=== PATIENT | male | born 2000 | race Caucasian/White ===

== ENCOUNTER 2024-01-28 03:42 | Emergency (ER) | payer BC ==
[2024-01-28 04:24] LABS: Absolute Lymphocytes (CBC) 0.9 K/uL (0.7-4.9); Absolute Monocytes 1.1 K/uL (0.1-1.3); Absolute Neutrophil 8.5 K/uL (1.8-8.0); Basophils % 0.3 % (0-1.3); Eosinophils % 0.1 % (0-4.4); Hematocrit 42.8 % (39.6-49.0); Hemoglobin 14.8 g/dL (13.6-17.9); Lymphocytes % 8.7 % (15.3-44.8); MCH 28.3 pg (27.0-35.0); MCHC 34.5 g/dL (32.0-36.0); MPV 7.4 fL (7.6-11.3); Monocytes % 10.6 % (3.3-12.3); Neutrophils % 80.3 % (41.7-73.7); Platelets 244 thou/uL (152-406); RBC Red Blood Cell Count 5.22 M/uL (4.33-5.43); Red Cell Distribution Width 12.9 % (12.1-15.2)
[2024-01-28 04:49] LABS: ALT/SGPT 46 U/L (16-61); AST/SGOT 65 U/L (15-37); Albumin 3.8 g/dL (3.4-5.0); Alkaline Phosphatase 76 U/L (45-117); BUN Blood Urea Nitrogen 18 mg/dL (7-18); Bicarbonate 27 mEq/L (21-32); Bilirubin Total 0.4 mg/dL (0.2-1.0); Globulin 3.8 g/dL (2.3-3.5); Glomerular Filtration Rate 104 ml/min (=/>90); Glucose Level 146 mg/dL (74-106); NT PRO-BNP 334 pg/mL (<125); Protein, Total 7.6 g/dL (6.4-8.2); Sodium Level 137 mEq/L (136-145)
[2024-01-28 04:53] LABS: Bilirubin Direct < 0.2 mg/dL (0-0.2); Bilirubin Indirect, Calculated 0.2 mg/dL (0.2-0.8)
[2024-01-28 04:55] LABS: Troponin High Sensitivity 22044.3 pg/mL (<58.9)
[2024-01-28] MEDS ORDERED: LORazepam 2 MG/ML VIAL ONE (05:24)
[2024-01-28] MEDS ORDERED: NA CHLORIDE 0.9% 2,000 ML ONE (05:25)
[2024-01-28] MEDS ORDERED: KETOROLAC 30 MG/ML INJ ONE (05:25)
--- NOTE | 2024-01-28 06:07 | RAD REPORT ---
PROCEDURE: XR Chest, 1 View CLINICAL INDICATION: The patient is 23 years old and is Male; Chest pain. TECHNIQUE: Frontal view of the chest. COMPARISON: None. FINDINGS: LUNGS: No discrete focal consolidation. PLEURAL SPACE: No appreciable pleural effusion or pneumothorax. MEDIASTINUM: Prominence of the cardiac silhouette, likely exaggerated secondary to portable techniq ue and lordotic positioning. Mediastinal contours appear unremarkable. Superior mediastinum is narrow. BONES/JOINTS: No acute osseous abnormality. IMPRESSION: No acute findings in the chest. Electronically signed by: Cyrus Simons MD 01/28/2024 05:17 AM CDT RP Due to temporary technical issues with the PACS/Addictive reporting system, reports are being jaime d by the in-house radiologist without review as a courtesy to ensure prompt reporting the interpreting radiologist is fully responsible for the content of the report. Transcribed Date/Time: 01/28/2024 6:07 AM
--- NOTE | 2024-01-28 06:19 | RAD REPORT ---
EXAM: CT Angiography Chest, Abdomen and Pelvis With Intravenous Contrast CLINICAL HISTORY: The patient is 23 years old and is Male; Chest pain. TECHNIQUE: Axial computed tomographic angiography images of the chest, abdomen and pelvis with intr avenous contrast. Sagittal and coronal reformatted images were created and reviewed. This CT exam was performed using one or more of the following dose reduction techniques: automated exposure control, adjustment of the mA and/or kV according to patient size, and/or use of iterative reconstruction technique. MIP reconstructed images were created and reviewed. COMPARISON: XR Chest 01/28/2024, 04:24:52 AM. FINDINGS: VASCULATURE: Aorta: No aortic dissection or aneurysm. Pulmonary arteries: Unremarkable as visualized. No pulmonary embolism is identified. Great vessels of aortic arch: No acute findings. No dissection. No arterial occlusion or sign ificant stenosis. Celiac trunk and mesenteric arteries: No acute findings. No occlusion or significant stenosis. Renal arteries: No acute findings. No occlusion or significant stenosis. Iliac arteries: No acute findings. No occlusion or significant stenosis. CHEST: Lungs: Unremarkable. No mass. No consolidation. Pleural space: Unremarkable. No significant effusion. No pneumothorax. Heart: Unremarkable. No cardiomegaly. No significant pericardial effusion. ABDOMEN: Liver: Unremarkable. No mass. Gallbladder and bile ducts: Unremarkable. No calcified stones. No ductal dilation. Pancreas: Unremarkable. No ductal dilation. No mass. Spleen: Unremarkable. No splenomegaly. Adrenals: Unremarkable. No mass. Kidneys and ureters: Unremarkable. No hydronephrosis. No solid mass. Stomach and bowel: No bowel dilatation or obstruction. No bowel wall thickening. PELVIS: Appendix: No findings to suggest acute appendicitis. Bladder: Unremarkable. No mass. Reproductive: Unremarkable as visualized. CHEST, ABDOMEN and PELVIS: Intraperitoneal space: Unremarkable. No significant fluid collection. No free air. Bones/joints: No acute fracture visualized. No dislocation. Soft tissues: Unremarkable. Lymph nodes: No pathologically enlarged lymph nodes. IMPRESSION: 1. No aortic dissection or aneurysm. 2. No acute findings in the chest, abdomen or pelvis. Electronically signed by: Promise Harris MD 01/28/2024 06:08 AM CDT RP ND Due to temporary technical issues with the PACS/Ar[employer] reporting system, reports are being jaime d by the in-house radiologist without review as a courtesy to ensure prompt reporting the interpreting radiologist is fully responsible for the content of the report. Transcribed Date/Time: 01/28/2024 6:18 AM
[2024-01-28] MEDS ORDERED: HEPARIN/D5W 25,000 UNIT/500 ML BAG IV ONE (06:33)
[2024-01-28] MEDS ORDERED: ASPIRIN 81 MG CHEWABLE TABLET ONE (06:33)
[2024-01-28] MEDS ORDERED: HEPARIN 5000 UNIT/ML 1 ML VIAL ONE (06:33)
--- NOTE | 2024-01-28 06:42 | ER ---
Nurse's Notes [facility] Name: Tobias Zamudio Age: 23 yrs Sex: Male : 2000 Arrival Date: 01/28/2024 Time: 03:42 Bed 8 Private MD: Diagnosis: Acute myocarditis, acute NSTEMI, evaded troponin level Presentation: 01/27 03:50 Chief complaint: Patient states: substernal CP beginning 0030 with nausea. Coronavirus lg3 screen: Client denies travel out of the [place] in the last 14 days. At this time, the client does not indicate any symptoms associated with coronavirus-19. Ebola Screen: No symptoms or risks identified at this time. Initial Sepsis Screen: Does the patient meet any 2 criteria? No. Patient's initial sepsis screen is negative. Does the patient have a suspected source of infection? No. Patient's initial sepsis screen is negative. Risk Assessment: Do you want to hurt yourself or someone else? Patient reports no desire to harm self or others. Onset of symptoms was January 28, 2024. 03:50 Method Of Arrival: Ambulatory lg3 03:50 Acuity: BONNIE 3 lg3 Triage Assessment: 03:51 General: Appears in no apparent distress. comfortable, Behavior is calm, cooperative. lg3 Pain: Complains of pain in xiphoid area and mid-sternal area. EENT: No deficits noted. No signs and/or symptoms were reported regarding the EENT system. Neuro: No deficits noted. Park Agitation-Sedation Scale (RASS): 0 - Alert and Calm Level of Consciousness is awake, alert, obeys commands, Oriented to person, place, time, situation. Cardiovascular: Reports chest pain, Capillary refill < 3 seconds Clubbing of nail beds is absent JVD is absent Patient's skin is warm and dry. Chest pain is described as mild, quality is heaviness, pressure. Respiratory: No deficits noted. Airway is patent Respiratory effort is even, unlabored, Respiratory pattern is regular, symmetrical. GI: No deficits noted. No signs and/or symptoms were reported involving the gastrointestinal system. : No deficits noted. No signs and/or symptoms were reported regarding the genitourinary system. Derm: No deficits noted. No signs and/or symptoms reported regarding the dermatologic system. Skin is intact, is healthy with good turgor, Skin is dry, Skin is normal, Skin temperature is warm. Musculoskeletal: No deficits noted. No signs and/or symptoms reported regarding the musculoskeletal system. Circulation, motion, and sensation intact. Range of motion: intact in all extremities. Historical: - Allergies: 03:51 No Known Allergies; lg3 - Home Meds: 03:51 None [Active]; lg3 - PMHx: 03:51 None; lg3 - PSHx: 03:51 None; lg3 - Immunization history:: Adult Immunizations up to date. - Infectious Disease History:: Denies. - Social history:: Smoking status: Patient denies any tobacco usage or history of. Patient/guardian denies using alcohol, street drugs. - Family history:: not pertinent. Screenin:53 [facility] ED Fall Risk Assessment (Adult) History of falling in the last 3 months, lg3 including since admission No falls in past 3 months (0 pts) Confusion or Disorientation No (0 pts) Intoxicated or Sedated No (0 pts) Impaired Gait No (0 pts) Mobility Assist Device Used No (0 pt) Altered Elimination No (0 pt) Score/Fall Risk Level 0 - 2 = Low Risk Oriented to surroundings, Maintained a safe environment, Educated pt \T\ family on fall prevention, incl call for assistance when getting out of bed, Assessed \T\ reinforced patient's understanding of fall precautions. Abuse screen: Denies threats or abuse. Denies injuries from another. Nutritional screening: No deficits noted. Tuberculosis screening: No symptoms or risk factors identified. Assessment: 03:53 General: see triage assessment. Pain: Pain does not radiate. Quality of pain is lg3 described as heavy, pressure, Pain began 4 hours ago. Also complains of nausea. 05:38 Reassessment: Patient appears in no apparent distress at this time. Patient and/or bm8 family updated on plan of care and expected duration. Pain level reassessed. Patient is alert, oriented x 3, equal unlabored respirations, skin warm/dry/pink. General: Appears in no apparent distress. comfortable, Behavior is calm, cooperative, appropriate for age. Pain: Denies pain. Neuro: No deficits noted. Level of Consciousness is awake, alert, obeys commands, Oriented to person, place, time, situation, Appropriate for age. Cardiovascular: Denies chest pain, Heart tones S1 S2 present Capillary refill < 3 seconds in bilateral fingers Patient's skin is warm and dry. Rhythm is sinus rhythm. Respiratory: Airway is patent Trachea midline Respiratory effort is even, unlabored, Respiratory pattern is regular, symmetrical, Breath sounds are clear bilaterally. GI: No signs and/or symptoms were reported involving the gastrointestinal system. : No signs and/or symptoms were reported regarding the genitourinary system. EENT: No signs and/or symptoms were reported regarding the EENT system. Derm: No signs and/or symptoms reported regarding the dermatologic system. Musculoskeletal: No signs and/or symptoms reported regarding the musculoskeletal system. 07:28 General: Appears in no apparent distress. Behavior is calm, cooperative. Pain: Denies mb9 pain. Neuro: Level of Consciousness is awake, alert, obeys commands, Oriented to person, place, time, situation, Appropriate for age. Cardiovascular: Heart tones S1 S2 present Patient's skin is warm and dry. Respiratory: Airway is patent Respiratory effort is even, unlabored, Respiratory pattern is regular, symmetrical. GI: Abdomen is flat, non-distended, Bowel sounds present X 4 quads. Abd is soft and non tender X 4 quads. : No signs and/or symptoms were reported regarding the genitourinary system. Derm: Skin is pink, warm \T\ dry. Musculoskeletal: Range of motion: intact in all extremities. 07:40 Reassessment: Attempted to call report to transferring nurse. Nurse not available and mb9 states she will call back. 08:15 Reassessment: No changes from previously documented assessment. Patient and/or family mb9 updated on plan of care and expected duration. Pain level reassessed. Patient is alert, oriented x 3, equal unlabored respirations, skin warm/dry/pink. 08:53 Reassessment: Report given to EMS. mb9 Vital Signs: 03:50 BP 134 / 73; Pulse 78; Resp 17 S; Temp 99(O); Pulse Ox 99% on R/A; Weight 86.18 kg (R); lg3 Height 5 ft. 11 in. (R); 05:38 BP 133 / 76; Pulse 85; Resp 17; Temp 99; Pulse Ox 100% on R/A; Pain 0/10; bm8 07:12 BP 112 / 69; Pulse 73; Resp 16; Pulse Ox 97% on R/A; mb9 08:53 BP 140 / 70; Pulse 88; Resp 18; Pulse Ox 100% on R/A; mb9 03:50 Body Mass Index 26.50 (86.18 kg, 180.34 cm) lg3 05:38 Pain Scale: Adult bm8 Emery Coma Score: 05:38 Eye Response: spontaneous(4). Motor Response: obeys commands(6). Verbal Response: bm8 oriented(5). Total: 15. ED Course: 03:47 Patient arrived in ED. gm2 03:51 Triage completed. lg3 03:51 Arm band placed on right wrist. lg3 03:53 Patient has correct armband on for positive identification. lg3 03:53 Patient maintains SpO2 saturation greater than 95% on room air. lg3 03:54 Reyna Sommer, RN is Primary Nurse. lg3 03:54 Client placed on continuous cardiac and pulse oximetry monitoring. NIBP monitoring lg3 applied. railroad engineer on. Door closed. Noise minimized. Warm blanket given. Pillow given. 03:57 Connor Jean MD is Attending Physician. sp4 04:16 Initial lab(s) drawn, by ED staff, sent to lab. EKG done, by ED staff, reviewed by lg3 Connor Jean MD. Inserted saline lock: 20 gauge in left antecubital area, using aseptic technique. Blood collected. Flushed with 10 mL NS. 04:17 CRP Sent. lg3 04:17 T4 Free Sent. lg3 04:17 TSH Sent. lg3 04:17 Basic Metabolic Panel Sent. lg3 04:17 CBC with Diff Sent. lg3 04:17 LFT's Sent. lg3 04:17 NT PRO-BNP Sent. lg3 04:17 Troponin HS Sent. lg3 04:30 XRAY Chest (1 view) In Process Unspecified. EDMS 05:21 Procalcitonin Sent. lg3 05:21 Lactate w/ 2H reflex if indic. Sent. lg3 05:21 Blood Culture Adult (2) Sent. lg3 05:22 Troponin High Sensitivity Sent. lg3 05:38 No provider procedures requiring assistance completed. bm8 05:49 CT Aorta for Dissection In Process Unspecified. EDMS 06:[address] [facility] from [facility]. bc6 07:06 bed acceptance Bed 14. bc6 07:12 Primary Nurse role handed off by Reyna Sommer RN mb9 07:12 Romana Liu, TAYLOR is Primary Nurse. mb9 07:13 Patient transferred, IV remains in place. mb9 08:20 Emma with [facility] accepted transfer. bc6 Administered Medications: 05:38 Drug: NS 0.9% IV 1000 ml IV at 1000 ml once; to be given as a bolus over 60 minutes bm8 Route: IV; Rate: 1000 ml; Site: left antecubital; 06:27 Follow up: Response: No adverse reaction; IV Status: Completed infusion; IV Intake: bm8 1000ml 05:38 Drug: NS 0.9% IV 1000 ml IV at 125 ml/hr continuous Route: IV; Rate: 125 ml/hr; Site: 8 left antecubital; 07:21 Follow up: Response: No adverse reaction; IV Status: Infusion continued upon transfer 9 05:38 Drug: Ketorolac IVP 30 mg IVP once Route: IVP; Site: left antecubital; bm8 06:26 Follow up: Response: No adverse reaction 8 05:38 Drug: Ativan IVP 1 mg IVP once Route: IVP; Site: left antecubital; bm8 06:26 Follow up: Response: No adverse reaction 8 06:45 Drug: Heparin (AR Drip) 12 units/kg/hr - ([place] [address] units, D5W IV 500 ml) IV at bm8 calculated rate Per protocol; Max initial rate 1000 units/hr {Co-Signature: yosi (Maris Hensley RN).} Route: IV; Rate: calculated rate; Site: left antecubital; 07:21 Follow up: Response: No adverse reaction; IV Status: Infusion continued upon transfer 9 06:46 Drug: Heparin (AR-Bolus No thrombolytic) - HEParin IVP 60 units/kg IVP once; Max 5000 bm8 units {Co-Signature: yosi (Maris Hensley RN).} Route: IVP; Site: left antecubital; 07:21 Follow up: Response: No adverse reaction 9 06:50 Drug: Aspirin PO Chewable Tablet 324 mg PO once; 81 mg tablets x 4 Route: PO; bm8 07:21 Follow up: Response: No adverse reaction mb9 Medication: 03:53 VIS not applicable for this client. lg3 Intake: 06:27 IV: 1000ml; Total: 1000ml. bm8 Outcome: 06:41 ER care complete, transfer ordered by MD. palmer 08:14 Transferred by ground EMS to [facility], Transfer form completed. mb9 X-rays sent w/ patient. Note: Report given to TAYLOR Blanca 08:14 Condition: stable 08:14 Instructed on the need for transfer, 08:53 Patient left the ED. mb9 Addendum: 01/30/2024 07:29 Addendum: Culture Results: Positive blood culture. Phone call Attempt #1 spoke with jose Lindsey at [facility] , faxed report to . Signatures: Dispatcher [employer] EDDesire Painter RN Reyna Santiago RN RN lg3 Noe, Romana Velasco RN RN mb9 Rocio Grover6 Connor Jean MD MD sp4 Mitchell, Ginger 2 Jg Kebede RN RN bm8 Maris Hensley RN kd3 Corrections: (The following items were deleted from the chart) 01/27 06:47 06:46 Heparin (AR-Bolus No thrombolytic) - HEParin IVP 5170.8 units IVP in left bm8 antecubital bm8
--- NOTE | 2024-01-28 06:42 | EDPHYS ---
Physician Documentation [facility] Name: Tobias Zamudio Age: 23 yrs Sex: Male : 2000 Arrival Date: 01/28/2024 Time: 03:42 Bed 8 Private MD: ED Physician Connor Jean HPI: 01/27 03:57 This 23 yrs old Male presents to ER via Ambulatory with complaints of Chest sp4 Pain. 06:32 This Is a 23-year-old male basically healthy male who presents with acute onset sp4 midsternal moderate chest pressure described as moderate to severe. Patient states that in the last few days he has been feeling unwell having chills and symptoms of viral illness. . Generally speaking patient a physically fit man, who works out at the gym and denied exertional chest pain or exertional dyspnea.. Historical: - Allergies: 03:51 No Known Allergies; lg3 - Home Meds: 03:51 None [Active]; lg3 - PMHx: 03:51 None; lg3 - PSHx: 03:51 None; lg3 - Immunization history:: Adult Immunizations up to date. - Infectious Disease History:: Denies. - Social history:: Smoking status: Patient denies any tobacco usage or history of. Patient/guardian denies using alcohol, street drugs. - Family history:: not pertinent. ROS: 06:32 Constitutional: Negative for fever, chills, and weight loss, positive chest pressure sp4 06:32 All other systems are negative, Exam: 06:32 Constitutional: This is a well developed, well nourished patient who is awake, alert, sp4 and in no acute distress. Head/Face: Normocephalic, atraumatic. Eyes: Pupils equal round and reactive to light, extra-ocular motions intact. Lids and lashes normal. Conjunctiva and sclera are not injected. Cornea within normal limits. Periorbital areas with no swelling, redness, or edema. ENT: Nares patent. No nasal discharge, no septal abnormalities noted. Tympanic membranes are normal and external auditory canals are clear. Oropharynx with no redness, swelling, or masses, exudates, or evidence of obstruction, uvula midline. Mucous membranes moist. Neck: Trachea midline, no thyromegaly or masses palpated, and no cervical lymphadenopathy. Supple, full range of motion without nuchal rigidity, or vertebral point tenderness. Chest/axilla: Normal chest wall appearance and motion. Nontender with no deformity. No lesions are appreciated. Cardiovascular: Regular rate and rhythm with a normal S1 and S2. No gallops, murmurs, or rubs. Normal PMI, no JVD. No pulse deficits. Respiratory: Lungs have equal breath sounds bilaterally, clear to auscultation and percussion. No rales, rhonchi or wheezes noted. No increased work of breathing, no retractions or nasal flaring. Abdomen/GI: Soft, with normal bowel sounds. No distension or tympany. No guarding or rebound. No evidence of tenderness throughout. Back: No spinal tenderness. No costovertebral tenderness. Skin: Warm, dry with normal turgor. Normal color with no rashes, no lesions, and no evidence of cellulitis. MS/ Extremity: Pulses equal, no cyanosis. Neurovascular intact. Full, normal range of motion. Neuro: Awake and alert, GCS 15, oriented to person, place, time, and situation. Cranial nerves II-XII grossly intact. Motor strength 5/5 in all extremities. Sensory grossly intact. Psych: Awake, alert, with orientation to person, place and time. Behavior, mood, and affect are within normal limits 06:32 ECG was reviewed by the Attending Physician. Initial EKG at 0409 normal sinus rhythm at rate of 76 with early repolarization. Vital Signs: 03:50 BP 134 / 73; Pulse 78; Resp 17 S; Temp 99(O); Pulse Ox 99% on R/A; Weight 86.18 kg (R); lg3 Height 5 ft. 11 in. (R); 05:38 BP 133 / 76; Pulse 85; Resp 17; Temp 99; Pulse Ox 100% on R/A; Pain 0/10; bm8 07:12 BP 112 / 69; Pulse 73; Resp 16; Pulse Ox 97% on R/A; mb9 08:53 BP 140 / 70; Pulse 88; Resp 18; Pulse Ox 100% on R/A; mb9 03:50 Body Mass Index 26.50 (86.18 kg, 180.34 cm) lg3 05:38 Pain Scale: Adult bm8 [place] Coma Score: 05:38 Eye Response: spontaneous(4). Motor Response: obeys commands(6). Verbal Response: bm8 oriented(5). Total: 15. MDM: 03:58 Medical Screening Exam initiated sp4 06:24 ED course: EXAM: CTAngiography Chest, Abdomen and Pelvis With Intravenous Contrast sp4 CLINICAL HISTORY: The patient is 23 years old and is Male; Chest pain. TECHNIQUE: Axial computed tomographic angiography images of the chest, abdomen and pelvis with intravenous contrast. Sagittal and coronal reformatted images were created and reviewed. This CT exam was performed using one or more of the following dose reduction techniques: automated exposure control, adjustment of the mA and/or kV according to patient size, and/or use of iterative reconstruction technique. MIP reconstructed images were created and reviewed. COMPARISON: XR Chest 01/28/2024, 04:24:52 AM. FINDINGS: VASCULATURE: Aorta: No aortic dissection or aneurysm. Pulmonary arteries: Unremarkable as visualized. No pulmonary embolism is identified. Great vessels of aortic arch: No acute findings. No dissection. No arterial occlusion or significant stenosis. Celiac trunk and mesenteric arteries: No acute findings. No occlusion or significant stenosis. Renal arteries: No acute findings. No occlusion or significant stenosis. Iliac arteries: No acute findings. No occlusion or significant stenosis. CHEST: Lungs: Unremarkable. No mass. No consolidation. Pleural space: Unremarkable. No significant effusion. No pneumothorax. Heart: Unremarkable. No cardiomegaly. No significant pericardial effusion. ABDOMEN: Liver: Unremarkable. No mass. Gallbladder and bile ducts: Unremarkable. No calcified stones. No ductal dilation. Pancreas: Unremarkable. No ductal dilation. No mass. Spleen: Unremarkable. No splenomegaly. Adrenals: Unremarkable. No mass. Kidneys and ureters: Unremarkable. No hydronephrosis. No solid mass. Stomach and bowel: No bowel dilatation or obstruction. No bowel wall thickening. PELVIS: Appendix: No findings to suggest acute appendicitis. Bladder: Unremarkable. No mass. Reproductive: Unremarkable as visualized. CHEST, ABDOMEN and PELVIS: Intraperitoneal space: Unremarkable. No significant fluid collection. No free air. Bones/joints: No acute fracture visualized. No dislocation. Soft tissues: Unremarkable. Lymph nodes: No pathologically enlarged lymph nodes. IMPRESSION: 1. No aortic dissection or aneurysm. 2. No acute findings in the chest, abdomen or pelvis. ED course: PROCEDURE: XR Chest, 1 View CLINICAL INDICATION: The patient is 23 years old and is Male; Chest pain. TECHNIQUE: Frontal view of the chest. COMPARISON: None. FINDINGS: LUNGS: No discrete focal consolidation. PLEURAL SPACE: No appreciable pleural effusion or pneumothorax. MEDIASTINUM: Prominence of the cardiac silhouette, likely exaggerated secondary to portable technique and lordotic positioning. Mediastinal contours appear unremarkable. Superior mediastinum is narrow. BONES/JOINTS: No acute osseous abnormality. IMPRESSION: No acute findings in the chest.. 06:37 HEART Score: History: Moderately Suspicious (1), ECG: Normal (0), Age: < or = 45 years sp4 (0), Risk Factors: No Risk Factors Known (0), Troponin: > or = 3 x Normal Limit (2), Total Score = 3. Data reviewed: vital signs, nurses notes. 06:38 Differential diagnosis: acute pericarditis, anxiety, chest wall pain, esophagitis, sp4 gastritis, myocarditis, pancreatitis, pericarditis. 01/27 04:06 Order name: Basic Metabolic Panel; Complete Time: 04:56 sp4 01/27 04:06 Order name: CBC with Diff; Complete Time: 04:54 sp4 01/27 04:06 Order name: LFT's; Complete Time: 04:56 sp4 01/27 04:06 Order name: NT PRO-BNP; Complete Time: 04:56 sp4 01/27 04:06 Order name: Troponin HS; Complete Time: 04:56 sp4 01/27 04:07 Order name: TSH; Complete Time: 04:56 sp4 01/27 04:07 Order name: T4 Free; Complete Time: 04:56 sp4 01/27 04:07 Order name: CRP; Complete Time: 04:56 sp4 01/27 04:55 Order name: Troponin High Sensitivity; Complete Time: 06:10 sp4 01/27 05:05 Order name: Blood Culture Adult (2) sp4 01/27 05:05 Order name: Lactate w/ 2H reflex if indic.; Complete Time: 06:10 sp4 01/27 05:05 Order name: Procalcitonin; Complete Time: 06:10 sp4 01/27 06:37 Order name: Ptt, Activated sp4 01/27 06:37 Order name: PT-INR sp4 01/27 06:42 Order name: SARS RAPID 4 01/27 06:42 Order name: Influenza Screen (a \T\ B) sp4 01/27 06:42 Order name: [place] Screen Profile 4 01/27 04:06 Order name: XRAY Chest (1 view) 4 01/27 04:57 Order name: CT Aorta for Dissection 4 01/27 03:57 Order name: EKG; Complete Time: 03:57 4 01/27 03:57 Order name: EKG - Nurse/Tech; Complete Time: 04:17 4 01/27 04:06 Order name: Cardiac monitoring; Complete Time: 04:17 4 01/27 04:06 Order name: IV Saline Lock; Complete Time: 04:17 4 01/27 04:06 Order name: Labs collected and sent; Complete Time: 04: [facility] 01/27 04:06 Order name: O2 Per Protocol; Complete Time: 04: [facility] 01/27 04:06 Order name: O2 Sat Monitoring; Complete Time: 04: 4 01/27 06:23 Order name: EKG - Nurse/Tech; Complete Time: 06:50 lg3 EC:32 Rate is 76 beats/min. Rhythm is regular, Normal Sinus Rhythm. QRS [place] is Normal. ND sp4 interval is normal. QRS interval is normal. QT interval is normal. No Q waves. T waves are Normal. No ST changes noted. Clinical impression: Normal ECG. Interpreted by me. Reviewed by me. Administered Medications: 05:38 Drug: NS 0.9% IV 1000 ml IV at 1000 ml once; to be given as a bolus over 60 minutes bm8 Route: IV; Rate: 1000 ml; Site: left antecubital; 06:27 Follow up: Response: No adverse reaction; IV Status: Completed infusion; IV Intake: bm8 1000ml 05:38 Drug: NS 0.9% IV 1000 ml IV at 125 ml/hr continuous Route: IV; Rate: 125 ml/hr; Site: bm8 left antecubital; 07:21 Follow up: Response: No adverse reaction; IV Status: Infusion continued upon transfer mb9 05:38 Drug: Ketorolac IVP 30 mg IVP once Route: IVP; Site: left antecubital; bm8 06:26 Follow up: Response: No adverse reaction 8 05:38 Drug: Ativan IVP 1 mg IVP once Route: IVP; Site: left antecubital; bm8 06:26 Follow up: Response: No adverse reaction bm8 06:45 Drug: Heparin ([place] Drip) 12 units/kg/hr - ([place] [address] units, D5W IV 500 ml) IV at bm8 calculated rate Per protocol; Max initial rate 1000 units/hr {Co-Signature: yosi (Maris Hensley RN).} Route: IV; Rate: calculated rate; Site: left antecubital; 07:21 Follow up: Response: No adverse reaction; IV Status: Infusion continued upon transfer mb9 06:46 Drug: Heparin ([place]-Bolus No thrombolytic) - HEParin IVP 60 units/kg IVP once; Max 5000 bm8 units {Co-Signature: yosi (Maris Hensley RN).} Route: IVP; Site: left antecubital; 07:21 Follow up: Response: No adverse reaction mb9 06:50 Drug: Aspirin PO Chewable Tablet 324 mg PO once; 81 mg tablets x 4 Route: PO; bm8 07:21 Follow up: Response: No adverse reaction mb9 Disposition Summary: 01/28/24 06:41 Transfer Ordered Notes: Transfer Location: [facility] sp4 Reason: Higher level of care sp4 Condition: Stable sp4 Problem: new sp4 Symptoms: have improved sp4 Accepting Physician: [facility] cardiology(01/28/24 08:53) mb9 Diagnosis - Acute myocarditis, acute NSTEMI, evaded troponin level sp4 Forms: - Medication Reconciliation Form sp4 - SBAR form sp4 Signatures: Dispatcher [employer] EDReyna Lopez RN RN lg3 Romana Liu RN RN [id number] Connor Jean MD MD sp4 Larissa Gonsalez MD MD gb1 Jg Kebede RN RN bm8 Maris Hensley RN kd3 Corrections: (The following items were deleted from the chart) 04:07 04:07 BASIC METABOLIC PANEL+C.LAB.BRZ ordered. EDMS EDMS 04:07 04:07 CBC+H.LAB.BRZ ordered. EDMS EDMS 04:07 04:07 HEPATIC FUNCTION+C.LAB.BRZ ordered. EDMS EDMS 04:07 04:07 PROBNP+C.LAB.BRZ ordered. EDMS EDMS 04:07 04:07 Troponin High Sensitivity+C.LAB.BRZ ordered. EDMS EDMS 04:07 04:07 Chest Single View+RAD.RAD.BRZ ordered. EDMS EDMS 04:07 04:07 C-REACTIVE PROTEIN+C.LAB.BRZ ordered. EDMS EDMS 05:06 05:06 BLOOD CULTURE*+BA.LAB.BRZ ordered. EDMS EDMS 05:06 05:06 LACTATE+C.LAB.BRZ ordered. EDMS EDMS 05:06 05:06 PCT+C.LAB.BRZ ordered. EDMS EDMS 06:42 06:42 SARS-COV-2 Antigen Rapid+I.LAB.BRZ ordered. EDMS EDMS 06:42 06:42 Influenza Screen (A \T\ B)+BA.LAB.BRZ ordered. EDMS EDMS 06:42 06:42 MONO SCREEN PROFILE+I.LAB.BRZ ordered. EDMS EDMS 08:53 06:41 [facility] cardiology sp4 mb9
[2024-01-28 07:05] LABS: PT Prothrombin Time 13.9 SECONDS (9.4-12.5); PTT, Activated Partial Thromb 29.1 SECONDS (24.3-36.9); Protime INR 1.25
[2024-01-28 07:12] LABS: Monoscreen NEG (NEG)
[2024-01-28 07:12] LABS: SARS-CoV-2 Antigen CONTROL BLUE LINE VIS/BG OK; SARS-CoV-2 Antigen Rapid Res Negative (Negative)
[2024-01-28 09:16] VITALS: TEMP 99
[2024-01-28 09:34] VITALS: BP 140/70; O2SAT 100
--- NOTE | 2024-01-28 11:48 | EKG ---
Test Date: 2024-01-28 Test Time: 04:09:00 Ssrs Report Developer: ANIRUDH MEASUREMENT RESULTS: Intervals: Rate: 76 IL: 148 QRSD: 104 QT: 378 QTc: 425 [place]: P: 38 IL: 148 QRS: 77 T: 38 INTERPRETIVE STATEMENTS: Normal sinus rhythm Early repolarization Normal ECG No previous ECG available for comparison Electronically Signed On 01-28-24 11:47:07 CDT by Jimenez Miranda
== END 2024-01-28 08:53 | disposition short-term general hospital (02) ==
LOC: ER 03:42
DX: I21.4 Non-ST elevation (NSTEMI) myocardial infarction (principal); I40.9 Acute myocarditis, unspecified; R79.89 Other specified abnormal findings of blood chemistry; Z11.52 Encounter for screening for COVID-19
CPT/HCPCS: 96365; 96361; 93005 ×2; 87040 ×2; 85025; 80048; 36415; 86308; 87205 ×2; 85610; 80076; 83605; 85730; 84443; 87077 ×2; 87186 ×2; 84484 ×2; 84439; 84145; 83880; 86140; 87804 ×2; 71275; 74175; 71045; 96375; 99285; 87811; Q9967; J1644; J7030